=== PATIENT | female | born 1975 ===

== ENCOUNTER 2019-09-26 15:34 | Emergency (ER) | payer OTHER ==
[~2019-09-26] VITALS: Ht 167.6 cm; Wt 86.0 kg
[2019-09-26 15:37] VITALS: BP 148/89
[2019-09-26] MEDS ORDERED: ketorolac tromethamine 15mg/ml inj. IM ONE (16:10)
[2019-09-26] MEDS ORDERED: CYCL-1 PO (17:15)
[2019-09-26] MEDS ORDERED: IBUP-1984 PO (17:15)
[2019-09-28] MEDS ORDERED: normal saline 1000ml 1,000 ML IV ONE (01:05)
== END 2019-09-26 17:30 | disposition home or self-care (01) ==
LOC: ER 15:34
DX: M54.5 Low back pain (principal); G89.29 Other chronic pain; V00.131A Fall from skateboard, initial encounter; Y93.51 Activity, roller skating (inline) and skateboarding; Y92.89 Other specified places as the place of occurrence of the external cause; Y99.9 Unspecified external cause status
CPT/HCPCS: 72192; 96372; 99284; J1885